=== PATIENT | female | born 1985 | race Two or more races ===

== ENCOUNTER 2025-09-30 10:45 | Outpatient (CLI) | payer OTHER ==
[2025-09-30 11:18] LABS: BASO % 0.6 % (0.1-1.2); EOS # 0.09 (0.04-0.54); EOS % 1.1 % (0.7-7.0); LYMPH # 2.07 (1.18-3.74); LYMPH % 26.3 % (19.3-53.1); MEAN PLATELET VOLUME 11.00 fl (9.4-12.4); MONO # 0.35 (0.24-0.82); MONO % 4.4 % (4.7-12.5); NEUT # 5.30 (1.56-6.13); NEUT % 67.3 % (34.0-71.1); RED CELL DISTRIBUTION WIDTH 12.8 % (11.6-14.4)
[2025-09-30 12:41] LABS: ALT/SGPT 19.0 U/L (12-78); AST/SGOT 13.0 U/L (15-37); BILIRUBIN TOTAL 1.21 mg/dL (0.3-1.2); BUN CREA RATIO 31.0 (7.0-25.0); CHOL HDL RATIO 4.6 (0-5.0); CREATININE SERUM 0.59 mg/dL (0.55-1.02); GFR 112.32; GLOBULINA 3.5 G/DL (2.4-3.5); GLUCOSE FASTING 84.0 mg/dL (65-100); HDL 50.0 mg/dl (40-60); LDL 162.0 mg/dl (0-130); OSMOLALITY SERUM 286.0 MOSM/KG (275-295); T4 FREE 1.14 NG/ML (0.76-1.46); TSH 0.717 uIU/mL (0.358-3.74); VLDL 17.0 (0-39)
[2025-09-30 14:21] LABS: ob POSITIVE (NEGATIVE)
[2025-10-03 08:06] LABS: chla t Negative (Negative); neiss Negative (Negative)
== END 2025-09-30 10:49 | disposition home or self-care (01) ==
LOC: LAB 10:45
DX: D64.9 Anemia, unspecified (principal); R73.03 Prediabetes; N17.9 Acute kidney failure, unspecified; E78.5 Hyperlipidemia, unspecified; E03.9 Hypothyroidism, unspecified; E55.9 Vitamin D deficiency, unspecified; Z12.11 Encounter for screening for malignant neoplasm of colon; E66.811 Obesity, class 1; I10 Essential (primary) hypertension; Z11.3 Encounter for screening for infections with a predominantly sexual mode of transmission; Z11.4 Encounter for screening for human immunodeficiency virus [HIV]

== ENCOUNTER 2025-09-30 11:21 | Outpatient (CLI) | payer OTHER | END 2025-09-30 11:40 | disposition home or self-care (01) | LOC: MAMO-SONO 11:21 | DX: N63.0 Unspecified lump in unspecified breast (principal); Z12.31 Encounter for screening mammogram for malignant neoplasm of breast ==